=== PATIENT | female | born 1985 | race Caucasian/White ===

== ENCOUNTER 2022-11-20 11:22 | Emergency (ER) | payer SELFPAY ==
--- NOTE | 2022-11-20 11:37 | ED.URI ---
HPI - URI/Sore Throat General Chief Complaint: Upper Respiratory Infection Stated Complaint: COLD/COUGH Time Seen by Provider: 11/20/22 11:37 Source: patient and RN notes reviewed Mode of arrival: ambulatory Limitations: no limitations History of Present Illness HPI Narrative: 37 y/o female presented with multiple complaints. She reports cough and congestion for at least one month. States it feels her lungs are 'stripping from her body.' Taking NyQuil for symptoms. Also concerned for . Unknown LMP. Also reports anxiety and requesting something for 'nerves.' Denies cp, sob, wheezing, abdominal pain, n/v/d/f/c. Smokes 1-2 ppd, occasional IVDA Fentanyl, last used one month per pt report. Patient is currently homeless, accompanied by a local new car make ready worker who states she walked into the [employer] yesterday after hitchhiking from [place], and spent the night in the police station. They are currently attempting to assist her into residential but she does not have identification. She identifies herself as this person. MD elicited complaint: cough Related Data Allergies Allergy/AdvReac Type Severity Reaction Status Date / Time amoxicillin Allergy Dyspnea / Verified 11/20/22 12:04 SOB Review of Systems Review of Systems: CONSTITUTIONAL: Denies malaise, chills, sweats, fever EYES: Denies visual changes, redness, or discharge ENT: Reports rhinorrhea, congestion, denies sinus pain, otalgia, sore throat CARDIOVASCULAR: Denies chest pain, palpitations, edema RESPIRATORY: Reports cough, post nasal drainage. Denies dyspnea GASTROINTESTINAL: Denies abdominal pain, nausea, vomiting, diarrhea SKIN: Denies rash or itching MUSCULOSKELETAL: Denies myalgia NEUROLOGIC: Denies headache [facility] Past Medical History Medical History (Updated 11/20/22 @ 13:22 by Ijeoma Zhang, CORNELIO) Chronic mental illness Exam Narrative: GENERAL: not acutely Ill-appearing, nontoxic; appears older than stated age HEAD: Normocephalic EYES: conjunctivae clear ENT: Mucous membranes moist. TM pearly meade with dull light reflex bilaterally; no tragal tenderness. Edentulous. Oropharynx without lesions or exudate, no drooling, no hoarseness, no trismus, uvula midline. CHEST: Clear to auscultation, breath sounds equal. Occasional registry np cough. No wheezing, rhonchi, rales, or stridor. No respiratory distress, speaks in full sentences. HEART: Regular rate and rhythm. Murmur noted. SKIN: Warm, dry, no rash. Scarring to bilateral ACs, no apparent recent track [place]. NEURO: Alert, cooperative PSYCH: appears anxious, talkative, flight of ideas Course Course Emergency Course: Patient is aware of diagnosis, understands and agrees to treatment plan. Anticipatory guidance given. Patient agrees to follow-up as directed and is aware of reasons to seek care at the emergency department. Portions of this record may have been created with voice recognition software Level of Care: Express Care Visit Vital Signs Vital signs: Vital Signs Temperature 97.6 F 11/20/22 11:38 Pulse Rate 99 11/20/22 11:38 Respiratory Rate 16 11/20/22 11:38 Blood Pressure 113/66 11/20/22 11:38 Pulse Oximetry 99 11/20/22 11:38 Temperature 97.6 F 11/20/22 11:38 Pulse Rate 99 11/20/22 11:38 Respiratory Rate 16 11/20/22 11:38 Blood Pressure 113/66 11/20/22 11:38 Pulse Oximetry 99 11/20/22 11:38 reviewed MDM - URI/Sore Throat MDM Narrative Medical decision making narrative: Urine preg negative. URI symptoms present for over one month, lungs clear on exam. Stable condition, no thoughts SI/HI. Does not appear to be a threat. Will hold off on additional testing. Accompanied by new car make ready worker who will drive her to residential. Differential Diagnosis Differential diagnosis: Likely upper respiratory infection, sinusitis and viral infection Lab Data Labs: UCG Bedside Result Negative Reference Range: Negative
[2022-11-20 11:38] VITALS: BP 113/66; PULSE 99; RESP 16; TEMP 36.4; O2SAT 99
== END 2022-11-20 13:06 | disposition other institution (70) ==
PROVIDERS: Emergency Provider Nurse Practitioner Family
DX: R05.9 Cough, unspecified (principal); F17.200 Nicotine dependence, unspecified, uncomplicated
CPT/HCPCS: 81025; 99212; G0463